=== PATIENT | female | born 1970 | race Caucasian/White ===

== ENCOUNTER → 2017-10-02 | Outpatient (CLI) | payer OTHER ==
[~2017-10-02] MED LIST: CHOL500015 PO; MULT-516 PO; TAMO20TA PO; VITAMIN E PO
[2017-10-02 10:13] LABS: HEMATOCRIT 43.8 % (34.6-47.8); HEMOGLOBIN 15.2 g/dL (11.7-16.4); WHITE BLOOD COUNT 6.3 x10^3/uL (3.4-10)
[2017-10-02 10:19] LABS: BLOOD UREA NITROGEN 16 mg/dL (7-18)
[2017-10-02 10:22] LABS: ASPARTATE AMINO TRANSFERASE 26 U/L (15-37)
== END | disposition home or self-care (01) ==
LOC: STAR 09:19
DX: Z01.818 Encounter for other preprocedural examination (principal); D25.9 Leiomyoma of uterus, unspecified; C50.919 Malignant neoplasm of unspecified site of unspecified female breast; N83.9 Noninflammatory disorder of ovary, fallopian tube and broad ligament, unspecified
CPT/HCPCS: 36415; 80053; 81003; 85025

== ENCOUNTER 2017-10-15 08:35 | Day surgery (SDC) | payer OTHER ==
[~2017-10-15] VITALS: Ht 170.2 cm; Wt 71.4 kg
[~2017-10-15 08:35] MED LIST changes: +BUPIVACAINE/PF 0.25% ONE
[2017-10-15 09:09] VITALS: BP 105/72
[2017-10-15] MEDS ORDERED: LACTATED RINGERS 1,000 ML IV SCH (09:10)
[2017-10-15 09:19] LABS: HCG UR LOT HCG7030192
[2017-10-15 09:22] LABS: HCG UR OBC PASS
[2017-10-15] MEDS ORDERED: FLUORESCEIN SODIUM 500 MG/5 ML ONE (09:41)
[2017-10-15] MEDS ORDERED: FENTANYL PF 250 MCG/5ML ONE (09:57)
[2017-10-15] MEDS ORDERED: MIDAZOLAM 1 MG/ML, 2ML ONE (09:57)
[2017-10-15] MEDS ORDERED: DEXAMETHASONE 4 MG/ML, 1ML ONE (10:01)
[2017-10-15] MEDS ORDERED: PROPOFOL 10 MG/ML, 20ML ONE (10:01)
[2017-10-15] MEDS ORDERED: SUCCINYLCHOLINE 20 MG/ML, 10ML ONE (10:01)
[2017-10-15] MEDS ORDERED: KETOROLAC 30 MG/1 ML ONE (10:01)
[2017-10-15] MEDS ORDERED: ESMOLOL 100 MG/10 ML ONE (10:01)
[2017-10-15] MEDS ORDERED: ONDANSETRON 2MG/ML, 2ML ONE (10:01)
[2017-10-15] MEDS ORDERED: CEFAZOLIN 1,000 MG ONE (10:01)
[2017-10-15] MEDS ORDERED: ROCURONIUM 10 MG/ML,10ML ONE (10:01)
[2017-10-15] MEDS ORDERED: FENTANYL PF 100 MCG/2ML ONE ×2 (10:22→12:43)
[2017-10-15] MEDS ORDERED: BUPIVACAINE/PF-EPI 0.5% 1:200K IM ONE (10:29)
[2017-10-15] MEDS ORDERED: FLUORESCEIN SODIUM 500 MG/5 ML IV ONE (10:36)
[2017-10-15] MEDS ORDERED: OXYcodone 5 MG/5 ML ORAL.SOL UDC PO PRN (11:30)
[2017-10-15] MEDS ORDERED: hydrALAzine 20 MG/ML, 1ML IV PRN (11:30)
[2017-10-15] MEDS ORDERED: HYDROmorphone 1 MG/ML, 1ML IV PRN (11:30)
[2017-10-15] MEDS ORDERED: LABETALOL 5MG/ML, 20ML IV PRN (11:30)
[2017-10-15] MEDS ORDERED: ONDANSETRON 2MG/ML, 2ML IVPush PRN (11:30)
[2017-10-15] MEDS ORDERED: HYDROmorphone 2 MG/ML, 1ML ONE (12:27)
[2017-10-15] MEDS ORDERED: OXYcodone 5 MG/5 ML ORAL.SOL UDC ONE (12:27)
[2017-10-15] MEDS: FENTANYL PF 100 MCG/2ML IV PRN ×2 (12:44→13:06)
== END 2017-10-15 16:40 ==
LOC: OUT 08:35
DX: N83.8 Other noninflammatory disorders of ovary, fallopian tube and broad ligament (principal); D25.9 Leiomyoma of uterus, unspecified; Z87.39 Personal history of other diseases of the musculoskeletal system and connective tissue; E11.9 Type 2 diabetes mellitus without complications; Z85.3 Personal history of malignant neoplasm of breast
CPT/HCPCS: 52000; 58571; 81025; 88305; 88307; 88331; C1760; J0330; J0690; J1100; J1170; J1885; J2250; J2405; J2704; J3010; J3490; J7120